=== PATIENT | female | born 1980 | race Caucasian/White ===

== ENCOUNTER 2022-09-24 15:59 | Outpatient (CLI) | payer BC, SELFPAY ==
--- NOTE | 2022-09-24 16:00 | CRLHL7_ITS ---
For Patients: As a result of the Century Cures Act, medical imaging exams and procedure reports are released immediately into your electronic medical record. You may view this report before your referring provider. If you have questions, please contact your health care provider. INDICATION: LLQ PAIN COMPARISON: none TECHNIQUE: 2D patterson scale and color Doppler images were acquired of the pelvis using a transabdominal and transvaginal approach. Power Doppler evaluation of both ovaries is performed. FINDINGS: Sonographic images demonstrate a normal size and smooth outer contour of the uterus. Uterus measures 6.3 cm in length by 3.9 cm in AP diameter by 4 point a cm in transverse dimension. The myometrium has a mildly heterogeneous echotexture. The endometrial lining measures 10 mm in composite thickness. The right ovary measures 3.5 x 2.3 x 2.3 cm in size and the left ovary measures 2.7 x 1.8 x 1.8 cm. Simple right ovarian cyst is present measuring 2.8 x 1.9 x 2.5 cm the ovaries demonstrate normal arterial and venous blood flow on color Doppler analysis. Normal power Doppler evaluation of both ovaries. No torsion. Trace physiologic free fluid noted. IMPRESSION: No evidence of ovarian torsion. 2.8 cm simple right ovarian cyst. No adnexal mass. Dictated by Robert Bellamy MD @ 09/25/2022 11:23:01 AM (Electronically Signed)
== END 2022-09-24 16:00 | disposition home or self-care (01) ==
LOC: US 16:00
PROVIDERS: PCP Physician Assistant Medical; Visit Provider Obstetrics & Gynecology
DX: R10.32 Left lower quadrant pain (principal); N83.201 Unspecified ovarian cyst, right side
CPT/HCPCS: 76830; 76856; 80061; 82947

== ENCOUNTER 2022-11-20 05:55 | Day surgery (SDC) | payer BC, SELFPAY ==
[2022-11-20] VITALS (11 sets, daily range): BP systolic 95–122; BP diastolic 59–76; PULSE 66–84; RESP 12–16; TEMP 36.3–37.2; O2SAT 95–100; BMI 21.9
[2022-11-20 06:21] LABS: Ur HCG Qualitative* Negative (Negative)
[2022-11-20] MEDS: SODIUM CHLORIDE 0.9 % (FLUSH) 10 ML SYRINGE IVF (06:30)
[2022-11-20] MEDS: LACTATED RINGERS 1000 ML 1,000 ML 100 ML IV ×2 (06:30→09:11)
--- NOTE | 2022-11-20 06:43 | SUR.PREOP ---
Patient provided home covid negative results to RN.
--- NOTE | 2022-11-20 07:47 | W.ANESCHARGE ---
Anesthesia Charges Start Date/Time Anesthesia Start Date: 11/20/22 Anesthesia Start Time: 07:15 Stop Date/Time Anesthesia Stop Date: 11/20/22 Anesthesia Stop Time: 08:48
[2022-11-20] MEDS: BUPIVACAINE 0.25% 30 ML INJECTION (08:06)
[2022-11-20] MEDS: SILVER NITRATE APPLICATOR 1 EACH STICK..EA. TOPICAL (08:29)
--- NOTE | 2022-11-20 08:51 | P.GYNPRC_ITS ---
Procedure Note Date Seen: 11/20/22 Procedure Details: PREOPERATIVE DIAGNOSIS: Chronic pelvic pain POSTOPERATIVE DIAGNOSIS: Endometriosis, Stage I Omental adhesion 2 cm simple right ovarian cyst PROCEDURE: Laparoscopic lysis of adhesions, right ovarian cystectomy, fulguration and excision of endometriosis SURGEON: Dariela Alvares MD ANESTHESIA: General IV FLUIDS: 900 cc crystalloid URINE OUTPUT: 150 cc EBL: 10 cc FINDINGS: 1. Upon pelvic exam under anesthesia, the cervix and vagina were normal in appearance. Uterus was mobile and retroverted, of normal size and texture. There were no palpable adnexal masses. 2. Upon laparoscopy, survey of the upper abdomen revealed a normal appearance to the inferior edge of the liver, gallbladder and stomach. Bowels were grossly normal appearance, as was the appendix. There were an omental adhesion to the anterior abdominal wall, and another to the anterior fundus of the uterus. Survey of the pelvis revealed a slight indentation of the anterior uterus, suggestive of prior classical . The omental adhesion almita attached near the superior aspect of this divot. The bladder reflection was scarred up along the anterior uterus, again most prominent from this divot. There was 1 superficial implant in the cul-de-sac, 1 mm in dimension, which was blue-black and suspected to represent active endometriosis. The cul-de-sac otherwise exhibited scattered superficial vesicular lesions that where excised, possible endometriosis. Bilateral tubes exhibited diffuse tiny vesicular blebs, likely peritoneal inclusion cysts. There was a similar blue-black superficial lesion on the surface of the left ovary. Right ovary exhibited a 2 cm simple right ovarian cyst that was ruptured during removal, spilling clear fluid. COMPLICATIONS: None PROCEDURE IN DETAIL: Patient was taken to the operating room with IV running. She was positioned in dorsal lithotomy position with her legs fully supported in Yellofin stirrups. General anesthesia was administered. She was prepped and draped in the usual sterile fashion. Bimanual exam was performed for the above- noted findings. Speculum was inserted. A single-toothed uterine manipulator was inserted through the cervix into the lower uterine segment, and affixed to the posterior cervical lip. Speculum was removed. Pearson catheter was placed. Patient's legs were placed in neutral position. Attention was turned to patient's abdomen. The infraumbilical area was infiltrated with small amount of Marcaine. An infraumbilical incision was made with a scalpel and carried through to the underlying layer of fascia with a hemostat. The 5 mm Fios Kii trocar was assembled with laparoscope within, and insufflator attached. While tenting up the abdomen manually, the trocar was passed through the anterior abdominal wall into the peritoneal cavity. Trocar was removed. Pneumoperitoneum was achieved. Survey of abdomen and pelvis revealed the above-noted findings. Two additional port sites were created. The first was in the patient's left lower quadrant, just superior medial to the left ASIS. The second was a hand's breath superior to and slightly medial to the first. Each was infiltrated with small amount of Marcaine prior to incision. A 5 mm incision was made at each site, making sure the large vessels were out of harm's way. A 5 mm Fios Kii port was inserted at each site, under direct visualization and without complication. The balloon on each of the three ports was inflated, holding each in place. The Thunderbeat device was used to cauterize and transect the above described omental adhesions. The blue-black vesicles in the cul-de-sac and surface of the ovary were grasped with [place] forceps. Each was ruptured in the process. A biopsy of the peritoneum surrounding the lesion in the cul-de-sac was sent to pathology. To other sites of vesicular lesions and punctate scarring or sharply excised from the cul-de-sac with laparoscopic jane. Hemostasis was achieved at each site with monopolar cautery. The right ovarian cyst was grasped and removed with gentle traction. The surrounding ovary was treated with monopolar cautery until hemostasis was noted. Pelvis was irrigated. Hemostasis was noted. All instruments were removed from the ports. The balloon tips of each port site were deflated. Pneumoperitoneum was released and the ports were removed. The monopolar cautery was used to obtain hemostasis at each of the 3 port sites. Skin was closed with a subcuticular stitch of 4-0 Monocryl. Surgical glue was applied above this. The uterine manipulator was removed. The puncture wound in the posterior cervical lip was treated with silver nitrate to obtain hemostasis. Pearson catheter was removed. Patient tolerated procedure well and was taken to recovery area in stable condition.
[2022-11-20] MEDS: fentaNYL 100 MCG/2 ML inj 50 MCG IVP (08:57)
[2022-11-20] MEDS: OXYCODONE 5 MG TABLET PO (10:00)
== END 2022-11-20 11:17 | disposition home or self-care (01) ==
PROVIDERS: PCP Physician Assistant Medical; Visit Provider Obstetrics & Gynecology
PROC: (CPT 49320; principal; 2022-11-20 07:15)
DX: R10.2 Pelvic and perineal pain (principal); G89.29 Other chronic pain; N83.291 Other ovarian cyst, right side; N80.311 Superficial endometriosis of the anterior cul-de-sac; N73.6 Female pelvic peritoneal adhesions (postinfective)
CPT/HCPCS: 58662; 00840; 36415; 81025; 84703; 86850; 86900; 86901; 88305; A9270; J0330; J1100; J1885; J2250; J2370; J2405; J2704; J3010; J3490; J7120

== ENCOUNTER 2022-12-08 14:59 | Outpatient (CLI) | payer BC, SELFPAY ==
--- NOTE | 2022-12-08 15:20 | CRLHL7_ITS ---
For Patients: As a result of the Cures Act, medical imaging exams and procedure reports are released immediately into your electronic medical record. You may view this report before your referring provider. If you have questions, please contact your health care provider. BILATERAL SCREENING MAMMOGRAM WITH COMPUTER-AIDED DETECTION AND TOMOSYNTHESIS TECHNIQUE: CC and MLO views were obtained. These mammographic images have been obtained using full-field digital technique. These mammographic images were interpreted with the benefit of computer-aided detection. Breast Tomosynthesis was used in this interpretation. COMPARISON FILM: 07/04/20, 01/11/19. FINDINGS: The breasts are heterogeneously dense, which may obscure small masses. IMPRESSION: There is no radiographic evidence for malignancy. ASSESSMENT: BI-RADS Category 1: Negative RECOMMENDATION: Routine screening mammogram in 1 year. A lay language report of this examination will be provided to the patient. Teja Logan M.D. Diagnostic/Nuclear Medicine Radiologist [email or web address] Transcribed: 8:31 a.m. PT/Dictated by: Teja Logan MD @ 12/09/2022 8:13:00 AM (Electronically Signed)
== END 2022-12-08 15:00 | disposition home or self-care (01) ==
LOC: MAMMO 15:00
PROVIDERS: PCP Physician Assistant Medical; Visit Provider Obstetrics & Gynecology
DX: Z12.31 Encounter for screening mammogram for malignant neoplasm of breast (principal); R92.2 Inconclusive mammogram
CPT/HCPCS: 77063; 77067

== ENCOUNTER 2024-09-06 09:15 | Outpatient (CLI) | payer BC, SELFPAY | END 2024-09-06 09:16 | disposition home or self-care (01) | LOC: NFLDREF 09-07 01:55 | PROVIDERS: PCP Physician Assistant Medical; Referring Provider Physician Assistant Medical; Visit Provider Obstetrics & Gynecology | DX: R23.2 Flushing (principal); N95.1 Menopausal and female climacteric states; E78.00 Pure hypercholesterolemia, unspecified; Z13.1 Encounter for screening for diabetes mellitus | CPT/HCPCS: 80061; 82947; 84443 ==

== ENCOUNTER 2024-10-03 09:55 | Outpatient (CLI) | payer BC, SELFPAY ==
--- NOTE | 2024-10-03 11:30 | P.ANES_ITS ---
Anesthesia Charges Start Date/Time Anesthesia Start Date: 10/03/24 Anesthesia Start Time: 11:05 Stop Date/Time Anesthesia Stop Date: 10/03/24 Anesthesia Stop Time: 11:28 Coding CPT Codes CPT Codes: YOSEF LWR INTST NDSC NOS - [id number] ([id number]) P2 - PATIENT W/MILD SYST DISEASE, QK - SODA FOUNTAIN CLERK 2-4 CNCRNT ANES PROC, QX - CLIENT EXPERIENCE ADMINISTRATOR SVC W/ MD MED DIRECTION
--- NOTE | 2024-10-03 11:30 | W.ANESCHARGE ---
Anesthesia Charges Start Date/Time Anesthesia Start Date: 10/03/24 Anesthesia Start Time: 11:05 Stop Date/Time Anesthesia Stop Date: 10/03/24 Anesthesia Stop Time: 11:28 Coding CPT Codes CPT Codes: YOSEF LWR INTST NDSC NOS - [id number] ([id number]) P2 - PATIENT W/MILD SYST DISEASE, QK - ROTARY SHEAR OPERATOR 2-4 CNCRNT ANES PROC, QX - AUTOMOTIVE MAINTENANCE TECHNICIAN SVC W/ MD MED DIRECTION
--- NOTE | 2024-10-03 11:31 | P.ANES_ITS ---
Anesthesia Charges Start Date/Time Anesthesia Start Date: 10/03/24 Anesthesia Start Time: 11:05 Stop Date/Time Anesthesia Stop Date: 10/03/24 Anesthesia Stop Time: 11:28 Coding CPT Codes CPT Codes: YOSEF LWR INTST NDSC NOS - [id number] ([id number]) P2 - PATIENT W/MILD SYST DISEASE, QK - PLAYGROUND ATTENDANT 2-4 CNCRNT ANES PROC, QX - COMPENSATION CONSULTING MANAGER SVC W/ MD MED DIRECTION
--- NOTE | 2024-10-03 11:31 | W.ANESCHARGE ---
Anesthesia Charges Start Date/Time Anesthesia Start Date: 10/03/24 Anesthesia Start Time: 11:05 Stop Date/Time Anesthesia Stop Date: 10/03/24 Anesthesia Stop Time: 11:28 Coding CPT Codes CPT Codes: YOSEF LWR INTST NDSC NOS - [id number] ([id number]) P2 - PATIENT W/MILD SYST DISEASE, QK - WINE BLENDER 2-4 CNCRNT ANES PROC, QX - GENERAL CLEANER SVC W/ MD MED DIRECTION
== END 2024-10-03 09:56 | disposition home or self-care (01) ==
LOC: OP CLINIC 09:56
PROVIDERS: PCP Physician Assistant Medical; Visit Provider Surgery
DX: Z12.11 Encounter for screening for malignant neoplasm of colon (principal); D12.4 Benign neoplasm of descending colon
CPT/HCPCS: 00811; 45385; 88305; J2704